=== PATIENT | female | born 1995 | race Caucasian/White ===

== ENCOUNTER 2019-02-15 09:44 | Emergency (ER) | payer BC, MEDICAID, OTHER ==
[~2019-02-15] VITALS: Ht 160 cm; Wt 79.0 kg
[~2019-02-15 09:44] MED LIST: FEXO-124 PO; FLUT16SP2 BOTHNARES; PSEU-259 PO
[2019-02-15 10:24] VITALS: BP 119/75
== END 2019-02-15 10:44 | disposition left against medical advice (07) ==
LOC: ER 09:44
DX: F41.9 Anxiety disorder, unspecified (principal); R42 Dizziness and giddiness; R56.9 Unspecified convulsions; Z53.21 Procedure and treatment not carried out due to patient leaving prior to being seen by health care provider; Z79.899 Other long term (current) drug therapy